=== PATIENT | female | born 1955 | race Caucasian/White ===

== ENCOUNTER 2017-10-07 05:33 | Day surgery (SDC) | payer MEDICAID ==
[2017-10-06 16:44] LABS: BASOPHILS # (AUTO) 0.1 X10'3 (0-0.2); EOSINOPHILS # (AUTO) 0.2 X10'3 (0-0.9); EOSINOPHILS % (AUTO) 3.2 % (0-6); LYMPHOCYTES # (AUTO) 1.9 X10'3 (1.1-4.8); LYMPHOCYTES % (AUTO) 36.6 % (21-51); MEAN CORPUSCULAR HEMOGLOBIN 33.1 PG (27.0-31.0); MEAN CORPUSCULAR HGB CONC 34.8 % (33.0-36.5); MEAN CORPUSCULAR VOLUME 95.1 FL (78-98); MEAN PLATELET VOLUME 6.7 FL (7.4-10.4); MONOCYTES # (AUTO) 0.4 X10'3 (0-0.9); MONOCYTES % (AUTO) 8.3 % (2-12); NEUTROPHILS # (AUTO) 2.6 X10'3 (1.8-7.7); NEUTROPHILS % (AUTO) 50.9 % (42-75); PRE OP HEMATOCRIT 41.2 % (35.0-45.0); PRE OP HEMOGLOBIN 14.4 g/dL (12.0-16.0); PRE OP PLATELET COUNT 317 X10'3 (140-440); RED BLOOD COUNT 4.33 X10'6 (4.20-5.60); RED CELL DISTRIBUTION WIDTH 15.7 % (11.5-14.5)
[2017-10-06 16:48] LABS: CLARITY,URINE Clear (Clear); COLOR,URINE Yellow (Yellow); GLUCOSE, URINE Negative (Neg); KETONES,URINE Negative (Neg); LEUKOCYTE ESTERASE ,URINE Negative (Neg); NITRITES, URINE Negative (Neg); OCCULT BLOOD,URINE Negative (Neg); PH,URINE 6.5 (4.8-8.0); PROTEIN,URINE Negative (Neg); UA COLLECTION TYPE CLN CATCH MIDSTREAM
[2017-10-06 17:01] LABS: ALBUMIN 3.6 G/DL (3.4-5.0); ALBUMIN/GLOBULIN RATIO 1.1 (1.1-1.5); ALKALINE PHOSPHATASE 88 IU/L (46-116); BLOOD UREA NITROGEN 8 MG/DL (7-18); BUN/CREATININE RATIO 10.5 (6.6-38.0); CALCIUM 8.7 MG/DL (8.5-10.1); CHLORIDE 102 MMOL/L (99-107); CREATININE 0.76 MG/DL (0.40-0.90); PRE OP ALT 26 U/L (30-65); PRE OP ANION GAP 6 (8-16); PRE OP AST 20 U/L (10-37); PRE OP BILIRUB, TOTAL 0.8 MG/DL (0.0-1.0); PRE OP GLUCOSE 85 MG/DL (70-104); PRE OP POTASSIUM 3.8 MMOL/L (3.4-5.1); PRE OP SODIUM 138 MMOL/L (135-145); TOTAL CARBON DIOXIDE 29.9 MMOL/L (24-32); eGFR 77 ML/MIN
[2017-10-07] VITALS (12 sets, daily range): BP systolic 110–130; BP diastolic 46–86
[~2017-10-07] VITALS: Ht 162.6 cm; Wt 66.7 kg
[~2017-10-07 05:33] MED LIST: AMOX500C2 PO; Cefazolin 2GM/50ML dext iso,osmotic IVPB IV ONE; DULO-31 PO; HYDR-569 PO; HYDR50TA65 PO; IBUP-1594 PO; VANCOMYCIN INJ 1000 MG in NORMAL SALINE 250ml IV.SOLN IV ONE; albuterol 2.5 MG/3 ML nebule NEB ONE; famotidine 20mg tablet PO ONE; ringers solution, lacted 1,000 ML IV SCH
[2017-10-07] MEDS ORDERED: LIDOcaine 1% (10mg/ml) 2ml vial ONE (05:50)
[2017-10-07] MEDS ORDERED: BUPIVAcaine/PF 2.5mg/ml (0.25%) 10ml vial ONE (06:14)
[2017-10-07] MEDS ORDERED: cloNIDine hcl/PF 100mcg/ml inj ONE (07:11)
[2017-10-07] MEDS ORDERED: ROPIVAcaine 0.5% (5mg/ml) 30ml vial ONE (07:11)
[2017-10-07] MEDS ORDERED: fentaNYL/PF 50MCG/1 ML 2ML syringe ONE (07:16)
[2017-10-07] MEDS ORDERED: midazolam 2 mg/2 ml injection ONE ×2 (07:16)
[2017-10-07] MEDS ORDERED: propofol inj 20 ML IV ONE (07:17)
[2017-10-07] MEDS ORDERED: sevoflurane 250ml liquid IH ONE (07:22)
[2017-10-07] MEDS ORDERED: meperidine/PF 25mg/ml syringe IV PRN ×3 (08:30)
[2017-10-07] MEDS ORDERED: ondansetron/PF 4mg/2ml inj IV PRN (08:30)
[2017-10-07] MEDS ORDERED: ringers solution, lacted 1,000 ML IV SCH (08:30)
[2017-10-07] MEDS ORDERED: morphine 4 MG/ML inj SYRINge IV PRN ×2 (08:30)
[2017-10-07] MEDS ORDERED: proCHLORperazine 10 MG/2 ml inj IV PRN (08:30)
== END 2017-10-07 11:00 | disposition home or self-care (01) ==
LOC: PAS 05:33
PROVIDERS: ATTEND Orthopaedic Surgery
DX: M75.41 Impingement syndrome of right shoulder (principal); M94.211 Chondromalacia, right shoulder; M75.51 Bursitis of right shoulder; M19.011 Primary osteoarthritis, right shoulder; M79.2 Neuralgia and neuritis, unspecified; F41.8 Other specified anxiety disorders; E78.5 Hyperlipidemia, unspecified; E66.9 Obesity, unspecified; F32.89 Other specified depressive episodes; J45.998 Other asthma; F17.210 Nicotine dependence, cigarettes, uncomplicated; M26.69 Other specified disorders of temporomandibular joint; Z90.710 Acquired absence of both cervix and uterus; Z90.722 Acquired absence of ovaries, bilateral; Z72.89 Other problems related to lifestyle; Z79.2 Long term (current) use of antibiotics; Z79.1 Long term (current) use of non-steroidal anti-inflammatories (NSAID); Z85.828 Personal history of other malignant neoplasm of skin; Z68.25 Body mass index [BMI] 25.0-25.9, adult; Z79.891 Long term (current) use of opiate analgesic; Z79.899 Other long term (current) drug therapy; Z98.890 Other specified postprocedural states
CPT/HCPCS: 29823; 29824; 36415; 80053; 81003; 85025; 93005; A6449; J0690; J0735; J2250; J2704; J2795; J3010; J3370; J3490; J7030; J7120; A6250; A7000

== ENCOUNTER 2018-11-16 17:19 | Emergency (ER) | payer MEDICAID ==
[~2018-11-16] VITALS: Ht 162.6 cm; Wt 65.9 kg
[~2018-11-16 17:19] MED LIST changes: -Cefazolin 2GM/50ML dext iso,osmotic IVPB IV ONE; -VANCOMYCIN INJ 1000 MG in NORMAL SALINE 250ml IV.SOLN IV ONE; -albuterol 2.5 MG/3 ML nebule NEB ONE; -famotidine 20mg tablet PO ONE; -ringers solution, lacted 1,000 ML IV SCH
[2018-11-16 17:43] VITALS: BP 188/84
[2018-11-16] MEDS ORDERED: ketorolac tromethamine 15mg/ml inj. IM ONE (18:55)
[2018-11-16] MEDS ORDERED: GABA-530 PO (19:01)
[2018-11-16] MEDS ORDERED: HYDROcodone/acetaminophen 10/325mg tab PO ONE (19:40)
== END 2018-11-16 19:50 | disposition home or self-care (01) ==
LOC: ER 17:20
DX: M25.552 Pain in left hip (principal); G89.29 Other chronic pain; Z90.710 Acquired absence of both cervix and uterus; Z79.2 Long term (current) use of antibiotics; Z79.899 Other long term (current) drug therapy
CPT/HCPCS: 72100; 73502; 96372; 99284; J1885

== ENCOUNTER 2019-02-20 11:59 | Emergency (ER) | payer MEDICAID ==
[~2019-02-20] VITALS: Ht 162.6 cm; Wt 70.5 kg
[~2019-02-20 11:59] MED LIST changes: +GABA-530 PO
[2019-02-20 12:11] VITALS: BP 161/77
[2019-02-20] MEDS ORDERED: HYDR-4353 PO (13:58)
[2019-02-20] MEDS ORDERED: ORPH100T2 PO (13:58)
== END 2019-02-20 14:29 | disposition home or self-care (01) ==
LOC: ER 12:00
DX: M25.552 Pain in left hip (principal); M54.42 Lumbago with sciatica, left side; I10 Essential (primary) hypertension; G89.29 Other chronic pain; F32.9 Major depressive disorder, single episode, unspecified; F10.99 Alcohol use, unspecified with unspecified alcohol-induced disorder; Z90.710 Acquired absence of both cervix and uterus; Z98.890 Other specified postprocedural states; Z79.899 Other long term (current) drug therapy; Y90.9 Presence of alcohol in blood, level not specified
CPT/HCPCS: 99283

== ENCOUNTER 2020-06-05 11:47 | Emergency (ER) | payer MEDICARE, MEDICAID ==
[~2020-06-05] VITALS: Ht 162.6 cm; Wt 62.0 kg
[~2020-06-05 11:47] MED LIST changes: -AMOX500C2 PO; +CARI3CAP PO; -DULO-31 PO; -GABA-530 PO; -HYDR-569 PO; -HYDR50TA65 PO; -IBUP-1594 PO; +LORA-268 PO
[2020-06-05 12:53] LABS: BASOPHILS # (AUTO) 0.1 X10'3 (0-0.2); BASOPHILS % (AUTO) 0.5 % (0-1); EOSINOPHILS # (AUTO) 0.1 X10'3 (0-0.9); EOSINOPHILS % (AUTO) 0.7 % (0-6); HEMOGLOBIN 17.7 g/dl (12.0-16.0); LYMPHOCYTES # (AUTO) 1.2 X10'3 (1.1-4.8); LYMPHOCYTES % (AUTO) 9.2 % (21-51); MEAN CORPUSCULAR HEMOGLOBIN 33.1 PG (27.0-31.0); MEAN CORPUSCULAR HGB CONC 32.8 g/dL (33.0-36.5); MEAN PLATELET VOLUME 6.8 FL (7.4-10.4); MONOCYTES # (AUTO) 0.9 X10'3 (0-0.9); MONOCYTES % (AUTO) 6.9 % (2-12); NEUTROPHILS # (AUTO) 10.9 X10'3 (1.8-7.7); NEUTROPHILS % (AUTO) 82.7 % (42-75); PLATELET COUNT 254 X10'3 (140-440); RED BLOOD COUNT 5.34 X10'6 (4.20-5.60); RED CELL DISTRIBUTION WIDTH 16.9 % (11.5-14.5); WHITE BLOOD COUNT 13.2 X10'3 (4.5-11.0)
[2020-06-05 13:20] LABS: ALANINE AMINOTRANSFERASE 20 U/L (12-78); ALBUMIN 3.2 G/DL (3.4-5.0); ALBUMIN/GLOBULIN RATIO 0.8 (1.1-1.5); ALKALINE PHOSPHATASE 110 IU/L (46-116); ANION GAP 14 (8-16); ASPARTATE AMINO TRANSFERASE 10 U/L (10-37); BILIRUBIN,TOTAL 2.2 MG/DL (0.1-1.0); BLOOD UREA NITROGEN 6 MG/DL (7-18); BUN/CREATININE RATIO 9.2 (6.6-38.0); CALCIUM 8.9 MG/DL (8.5-10.1); CHLORIDE 103 MMOL/L (99-107); CREATININE 0.65 MG/DL (0.40-0.90); GLUCOSE 132 MG/DL (70-104); POTASSIUM 3.2 MMOL/L (3.5-5.1); SODIUM 139 MMOL/L (135-145); TOTAL CARBON DIOXIDE 22.2 MMOL/L (24-32); TOTAL PROTEIN 7.1 G/DL (6.4-8.2); eGFR > 90 ML/MIN
[2020-06-05 14:07] VITALS: BP 125/71
== END 2020-06-05 15:03 | disposition home or self-care (01) ==
LOC: ER 11:48
DX: R07.89 Other chest pain (principal); R53.83 Other fatigue; I10 Essential (primary) hypertension; G89.29 Other chronic pain; F32.9 Major depressive disorder, single episode, unspecified; Z90.710 Acquired absence of both cervix and uterus; Z98.890 Other specified postprocedural states; Z79.899 Other long term (current) drug therapy
CPT/HCPCS: 36415; 71045; 76700; 80053; 83880; 84484; 85025; 93005; 99285

== ENCOUNTER 2020-07-28 15:46 | Inpatient (IN) | payer MEDICARE, MEDICAID ==
[~2020-07-28] VITALS: Ht 162.6 cm; Wt 61.4 kg
[2020-07-28] MEDS ORDERED: normal saline 1000ML IV soln IVB ONE (15:55)
[2020-07-28] MEDS ORDERED: metoprolol tartrate 1mg/ml inj IV ONE ×4 (15:55→16:46)
[2020-07-28] MEDS ORDERED: heparin, porcine 5000 units/ml vial IV ONE (15:55)
[2020-07-28] MEDS ORDERED: heparin, porcine 5000 units/ml vial IV SCH (15:55)
[2020-07-28 16:09] LABS: BASOPHILS # (AUTO) 0.1 X10'3 (0-0.2); BASOPHILS % (AUTO) 0.8 % (0-1); EOSINOPHILS # (AUTO) 0.1 X10'3 (0-0.9); EOSINOPHILS % (AUTO) 0.6 % (0-6); HEMATOCRIT 53.9 % (35.0-45.0); LYMPHOCYTES # (AUTO) 1.8 X10'3 (1.1-4.8); LYMPHOCYTES % (AUTO) 15.1 % (21-51); MEAN CORPUSCULAR HEMOGLOBIN 32.6 PG (27.0-31.0); MEAN CORPUSCULAR HGB CONC 33.4 g/dL (33.0-36.5); MEAN CORPUSCULAR VOLUME 97.6 FL (78-98); MONOCYTES # (AUTO) 0.5 X10'3 (0-0.9); MONOCYTES % (AUTO) 4.3 % (2-12); NEUTROPHILS # (AUTO) 9.5 X10'3 (1.8-7.7); NEUTROPHILS % (AUTO) 79.2 % (42-75); PLATELET COUNT 335 X10'3 (140-440); RED BLOOD COUNT 5.52 X10'6 (4.20-5.60); RED CELL DISTRIBUTION WIDTH 16.4 % (11.5-14.5)
--- NOTE | 2020-07-28 16:13 | NUR ---
REPORT GIVEN TO UZIEL KENNEDY IN HOME [facility] AT THIS TIME. ALL QUESTIONS AND CONCERNS ADDRESSED.
[2020-07-28] MEDS ORDERED: fentaNYL/PF 50MCG/1 ML 2ML syringe ONE (16:14)
[2020-07-28] MEDS ORDERED: LIDOcaine 1% (10mg/ml)w/preservative injection 20ml MDV ONE (16:14)
[2020-07-28] MEDS ORDERED: midazolam 1 mg/ML 2ml injection ONE (16:14)
[2020-07-28] MEDS ORDERED: iohexol 350 MG/1 ML 200ml bottle ONE (16:15)
[2020-07-28] MEDS ORDERED: heparin 1,000unit/ml 10ml vial 10 ML ONE (16:15)
[2020-07-28 16:21] LABS: ALANINE AMINOTRANSFERASE 29 U/L (12-78); ALBUMIN 3.9 G/DL (3.4-5.0); ALBUMIN/GLOBULIN RATIO 1.1 (1.1-1.5); ALKALINE PHOSPHATASE 112 IU/L (46-116); ANION GAP 14 (8-16); ASPARTATE AMINO TRANSFERASE 23 U/L (10-37); BILIRUBIN,TOTAL 1.5 MG/DL (0.1-1.0); BLOOD UREA NITROGEN 7 MG/DL (7-18); CALCIUM 9.4 MG/DL (8.5-10.1); CHLORIDE 101 MMOL/L (99-107); CREATININE 0.87 MG/DL (0.40-0.90); GLUCOSE 157 MG/DL (70-104); POTASSIUM 3.6 MMOL/L (3.5-5.1); SODIUM 140 MMOL/L (135-145); TOTAL CARBON DIOXIDE 25.1 MMOL/L (24-32); TOTAL PROTEIN 7.6 G/DL (6.4-8.2); eGFR 65 ML/MIN
--- NOTE | 2020-07-28 16:24 | NUR ---
PATIENT TO DENTOFACIAL [facility]THOPED[facility] DENTIST AT THIS TIME.
[2020-07-28] MEDS ORDERED: amiodarone 150mg/dext, iso-os 100 ML IV ONE (16:37)
[2020-07-28] MEDS ORDERED: phenylephrine 10mg/ml inj. ONE (16:52)
[2020-07-28] MEDS ORDERED: amiodarone/D5 360MG/200ML BAG 200 ML IV ONE (16:54)
[2020-07-28] MEDS ORDERED: ERGO500054 PO (17:31)
[2020-07-28] MEDS ORDERED: normal saline 1000ml 1,000 ML IV SCH (17:35)
[2020-07-28] MEDS ORDERED: aspirin 81mg tab.chew PO ONE ×2 (17:35→20:05)
[2020-07-28] MEDS ORDERED: acetaminophen 325mg tablet PO PRN ×2 (17:40)
[2020-07-28] MEDS ORDERED: magnesium hydroxide 30ml (MOM) UD suspension PO PRN (17:40)
[2020-07-28] MEDS: amiodarone/D5 360MG/200ML BAG 200 ML IV SCH ×2 (17:54→22:44)
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
[2020-07-28 18:00] VITALS: BP 113/81
--- NOTE | 2020-07-28 18:30 | NUR ---
Patient in room MED 308. I have received report from Estefani-BRENT(T), and had the opportunity to ask questions and assume patient care.
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
[2020-07-28 20:00] VITALS: BP 110/74
[2020-07-28] MEDS: ondansetron/PF 4mg/2ml inj IV PRN (20:13)
[2020-07-28 22:00] VITALS: BP 100/76
--- NOTE | 2020-07-28 22:00 | NUR ---
Patient is setting up on the bed. the right groin site is clean, dry, intact. Patient is not under any distress. Cardiac rhythm is A fib rate controlled.
[2020-07-28] MEDS: normal saline 1000ml 1,000 ML IV SCH (22:48)
--- NOTE | 2020-07-28 23:38 | NUR ---
Patient is resting. The groin site is CDI, no hematoma. On amio drip on 3rd bag, 0.5mg/hr (16ml/hr). A fib with rate controlled.
[2020-07-29] VITALS (7 sets, daily range): BP systolic 100–154; BP diastolic 76–99
[2020-07-29] MEDS: ondansetron/PF 4mg/2ml inj IV PRN ×2 (02:57→09:38)
--- NOTE | 2020-07-29 03:04 | NUR ---
The groin site is clean, dry, intact. patient is resting. Not at any distress. Cardiac rhythm is A. Fib. Alert, oriented x4.
[2020-07-29] MEDS: amiodarone/D5 360MG/200ML BAG 200 ML IV SCH ×3 (05:35→17:35)
--- NOTE | 2020-07-29 05:53 | NUR ---
Patient converted to Sinus Rhythm at 0540. Alert, oriented x4. Not at any distress. All needs are met. The groin site is CDI, no hematoma.
--- NOTE | 2020-07-29 06:57 | NUR ---
Problems reprioritized. Patient report given, questions answered & plan of care reviewed with Roly(T)and aware of patient converting back to normal sinus rhythm.
[2020-07-29] MEDS ORDERED: nitroGLYCERIN 0.4mg/hour patch TD SCH (08:00)
[2020-07-29] MEDS ORDERED: atorvastatin 20mg tablet PO SCH (08:00)
[2020-07-29] MEDS ORDERED: enoxaparin 40mg/0.4ml syringe SQ SCH (08:00)
[2020-07-29] MEDS ORDERED: aspirin 81mg tab.chew PO SCH (08:00)
[2020-07-29] MEDS ORDERED: metoprolol succinate 25mg (24-HOUR) SR. Tablet PO SCH (08:00)
[2020-07-29 08:01] LABS: CHOLESTEROL 189 MG/DL (0-200); HDL CHOLESTEROL 64 MG/DL (35-60); LDL CHOLESTEROL 103 MG/DL (50-100); TRIGLYCERIDES 116 MG/DL (20-135)
[2020-07-29] MEDS ORDERED: dextrose 50%-water 50ml dispensing syringe IV ONE (10:00)
[2020-07-29] MEDS ORDERED: epiNEPHrine 0.1mg/ml 10ml syringe ONE (10:00)
[2020-07-29] MEDS ORDERED: sodium bicarbonate (8.4%) 1 mEq/ml syringe ONE (10:00)
[2020-07-29] MEDS ORDERED: calcium chloride 100 MG/1 ML inj IV ONE (10:00)
[2020-07-29] MEDS: normal saline 1000ml 1,000 ML IV SCH (14:15)
--- NOTE | 2020-07-29 18:30 | NUR ---
Patient in room MED 308. I have received report from Ag Nelson-BRENT(T), and had the opportunity to ask questions and assume patient care.
--- NOTE | 2020-07-29 21:40 | NUR ---
I was on break when I heard pretty monge on ACCE room 308. Run as fast as i could around 2119. Pretty monge team, house sup and pharmacy, labe, x-ray people present on the floor. Patient went to ernestine and asystole. Patient at 2136. Please look at details step by step Pretty monge by ER Dr. Parker.
--- NOTE | 2020-07-29 21:44 | NUR ---
Called Dr. Bean informed him regarding the patient valente to ernestine and then asystole at 2119. Yazmin monge was called. Patient at 2136.
--- NOTE | 2020-07-29 21:53 | NUR ---
Called her next of Kin Howard Knightchum, her roommate at [phone] and informed him regarding the expiration of Ms. Valdes. He acknowledged it and said he will take care of it from this point. Will call him in 15 to 30 minute
--- NOTE | 2020-07-29 22:10 | NUR ---
Call [facility] at [phone] and informed them regarding the patient expiration time at 2136. All the request information given and they gave a the referral # [id number]. They said they will follow up in an hour.
--- NOTE | 2020-07-30 01:04 | NUR ---
[facility] Spoke with Elier and informed her regarding the patient's pickup. They told me that the diver will be here at [facility] within an hour. The expiration memorandum signed by patient's daughter Rosa Maria Valdes-[phone]. Charge Nurse-Magnolia is aware of the situation.
--- NOTE | 2020-07-30 01:45 | NUR ---
Elier from [facility] arrived on the floor. The expiration memorandum signed. The patient's body taken by security with Elier from the [facility]. Radha aware of the situation.
== END 2020-07-30 01:45 | disposition expired ==
LOC: ER 15:47 → MED 3N 17:24
PROVIDERS: ADMIT Internal Medicine Cardiovascular Disease; ATTEND Internal Medicine Cardiovascular Disease
PROC: 4A023N7 Measurement of Cardiac Sampling and Pressure, Left Heart, Percutaneous Approach (ICD-10-PCS; principal; 2020-07-28)
PROC: B2111ZZ Fluoroscopy of Multiple Coronary Arteries using Low Osmolar Contrast (ICD-10-PCS; 2020-07-28)
PROC: B2151ZZ Fluoroscopy of Left Heart using Low Osmolar Contrast (ICD-10-PCS; 2020-07-28)
PROC: 5A12012 Performance of Cardiac Output, Single, Manual (ICD-10-PCS; 2020-07-29)
PROC: 0D9670Z Drainage of Stomach with Drainage Device, Via Natural or Artificial Opening (ICD-10-PCS; 2020-07-29)
PROC: 0BH17EZ Insertion of Endotracheal Airway into Trachea, Via Natural or Artificial Opening (ICD-10-PCS; 2020-07-29)
DX: I21.09 ST elevation (STEMI) myocardial infarction involving other coronary artery of anterior wall (principal); I51.81 Takotsubo syndrome; I23.3 Rupture of cardiac wall without hemopericardium as current complication following acute myocardial infarction; I10 Essential (primary) hypertension; G89.29 Other chronic pain; I25.10 Atherosclerotic heart disease of native coronary artery without angina pectoris; I21.29 ST elevation (STEMI) myocardial infarction involving other sites; M54.9 Dorsalgia, unspecified; M19.90 Unspecified osteoarthritis, unspecified site; R00.1 Bradycardia, unspecified; F32.9 Major depressive disorder, single episode, unspecified; I48.91 Unspecified atrial fibrillation; Z87.891 Personal history of nicotine dependence; Z90.710 Acquired absence of both cervix and uterus; Z90.722 Acquired absence of ovaries, bilateral; I46.9 Cardiac arrest, cause unspecified; Z98.891 History of uterine scar from previous surgery
CPT/HCPCS: 36415; 71045; 80053; 80061; 83880; 84484; 85025; 87081; 92950; 93005; 93306; 93458; 94799; 96361; 96375; 99152; 99291; A4620; A6258; C1760; C1769; C1894; G0378; J0171; J1644; J1650; J2001; J2250; J2370; J2405; J3010; J3490; J7030; Q9967